=== PATIENT | female | born 1945 | race Caucasian/White ===

== ENCOUNTER → 2016-12-20 | Outpatient (CLI) | payer MEDICARE, OTHER ==
[2014-08-11 09:30] VITALS: BP 126/66
[~2016-12-20] MED LIST: ALBU8.5H8 IH; ASPI-630 PO; CALC1TAB PO; LOSA1TAB7 PO; MELO15TA6 PO; VITA400C36 PO
--- NOTE | 2016-12-21 09:26 | RAD ---
DATE: 12/20/2016 EXAM: MAMMO KARYNA SCREENING BILATERAL HISTORY: Screening mammogram COMPARISON: None. This study was interpreted with the benefit of Computerized Aided Detection (CAD). The breast parenchyma shows scattered fibroglandular densities. Breast parenchyma level B. FINDINGS: Digital 2-D and 3-D, tomosynthesis CC and MLO views of both breasts. In the lower inner quadrant of the left breast, junction of anterior middle depth, there is a circumscribed 5 mm mass. No suspicious calcifications or architectural distortion. IMPRESSION: 1. 5 mm mass in the lower inner quadrant of the left breast. BI-RADS CATEGORY: 0 INCOMPLETE: NEEDS ADDITIONAL IMAGING EVALUATION AND/OR PRIOR MAMMOGRAMS FOR COMPARISON. RECOMMENDED FOLLOW-UP: ADD ADDITIONAL IMAGING. Spot compression views of the left breast and possible same day ultrasound for further evaluation. PQRS compliance statement: Patient information was entered into a reminder system. Mammography is a sensitive method for finding small breast cancers, but it does not detect them all and is not a substitute for careful clinical examination. A negative mammogram does not negate a clinically suspicious finding and should not result in delay in biopsying a clinically suspicious abnormality. "Our facility is accredited by the [employer] Mammography [employer]."
== END | disposition home or self-care (01) ==
LOC: MAMMO 13:04
PROVIDERS: ATTEND Physician Assistant
DX: Z12.31 Encounter for screening mammogram for malignant neoplasm of breast (principal)
CPT/HCPCS: 77063; G0202; 77067

== ENCOUNTER → 2017-01-04 | Outpatient (CLI) | payer MEDICARE, OTHER ==
[2014-08-11 09:30] VITALS: BP 126/66
--- NOTE | 2017-01-06 11:22 | RAD ---
DATE: 01/04/2017 EXAM: BREAST LEFT, DIGITAL DIAGNOSTIC LT HISTORY: Small mass seen within the left breast on recent screening mammogram. COMPARISON: 12/20/2016 This study was interpreted with the benefit of Computerized Aided Detection (CAD ). FINDINGS: True lateral and spot compression MLO and CC digital mammograms of the left breast were obtained. Comparison study is dated 12/20/2016. A persistent small well-defined nodule is seen within the medial aspect of the left breast, unchanged. Further evaluation with ultrasound is recommended. A real-time ultrasound examination of the medial aspect of the left breast was performed. Multiple images were obtained. Comparison is made to the patient's mammogram performed earlier the same day. Within the left breast at the 7:00 position a well-defined oval-shaped complex structure is seen which measures 4 mm in greatest diameter. This corresponds to the patient's mammographic abnormality. Its ultrasound appearance is consistent with a probably benign finding. A repeat ultrasound of the left breast in 6 months is recommended to document its stability. IMPRESSION: BI-RADS Category 3 probably benign findings. A repeat ultrasound of the left breast in 6 months is recommended to document stability of the 4 mm nodule within the left breast at the 10:00 position as outlined above. BI-RADS CATEGORY: 3 PROBABLY BENIGN FINDING(S)-SHORT INTERVAL FOLLOW-UP SUGGESTED RECOMMENDED FOLLOW-UP: 6 month follow-up ultrasound left breast PQRS compliance statement: Patient information was entered into a reminder system with a target due date of July 07, 2017 for follow-up ultrasound of the left breast. Mammography is a sensitive method for finding small breast cancers, but it does not detect them all and is not a substitute for careful clinical examination. A negative mammogram does not negate a clinically suspicious finding and should not result in delay in biopsying a clinically suspicious abnormality. "Our facility is accredited by the [employer] Mammography Program." MTDD
== END | disposition home or self-care (01) ==
LOC: MAMMO 13:06
PROVIDERS: ATTEND Physician Assistant
DX: R92.8 Other abnormal and inconclusive findings on diagnostic imaging of breast (principal)
CPT/HCPCS: 76641; G0206; 77065

== ENCOUNTER → 2017-12-27 | Outpatient (CLI) | payer MEDICARE, OTHER ==
[2014-08-11 09:30] VITALS: BP 126/66
--- NOTE | 2017-12-27 14:53 | RAD ---
DATE: 2017 EXAM: MAMMO KARYNA SCREENING BILATERAL HISTORY: Routine screening COMPARISON: 12/20/2016 This study was interpreted with the benefit of Computerized Aided Detection (CAD). The breast parenchyma shows scattered fibroglandular densities. Breast parenchyma level B. FINDINGS: 2-D and 3-D tomosynthesis imaging was performed in CC and MLO projections. A small smooth nodule is again noted medially in the left breast on CC karyna image #[id number]. It is unchanged since 12/20/2016. No new or enlarging breast densities are seen. Benign type calcifications present. No suspicious microcalcifications have developed. IMPRESSION: Stable bilateral mammograms. Follow-up left breast ultrasound in 6 months and bilateral mammography at one year is suggested to confirm stability of the small left breast nodule. BI-RADS CATEGORY: 3 PROBABLY BENIGN FINDING(S)-SHORT INTERVAL FOLLOW-UP SUGGESTED RECOMMENDED FOLLOW-UP: 6M 6 MONTH FOLLOW-UP PQRS compliance statement: Patient information was entered into a reminder system with a target due date for the next mammogram. Mammography is a sensitive method for finding small breast cancers, but it does not detect them all and is not a substitute for careful clinical examination. A negative mammogram does not negate a clinically suspicious finding and should not result in delay in biopsying a clinically suspicious abnormality. "Our facility is accredited by the [employer] Mammography Program."
== END | disposition home or self-care (01) ==
LOC: MAMMO 11:07
PROVIDERS: ATTEND Physician Assistant
DX: Z12.31 Encounter for screening mammogram for malignant neoplasm of breast (principal); E78.5 Hyperlipidemia, unspecified; I10 Essential (primary) hypertension; J45.909 Unspecified asthma, uncomplicated; I25.2 Old myocardial infarction; Z86.73 Personal history of transient ischemic attack (TIA), and cerebral infarction without residual deficits
CPT/HCPCS: 77063; 77067

== ENCOUNTER → 2018-05-02 | Outpatient (CLI) | payer OTHER ==
[2014-08-11 09:30] VITALS: BP 126/66
--- NOTE | 2018-05-02 15:51 | RAD ---
2 view study of both knees Clinical indications: Bilateral knee pain. No known injury. 2 view left knee study: No acute fracture or dislocation or osteolytic process is seen. There is moderate joint space narrowing and spurring of the medial tibiofemoral joint compartment. There is mild joint space narrowing and mild spurring of the lateral tibiofemoral joint compartment. There is mild joint space narrowing and spurring of the patellofemoral joint compartment. IMPRESSION: Tricompartmental primary degenerative osteoarthritis of left knee most severely involving the medial tibial femoral joint compartment. 2 view right knee study: There is moderate joint space narrowing and moderate spurring of the medial tibiofemoral joint compartment. There is moderate spurring with mild joint space narrowing of the lateral tibial femoral joint compartment. There is moderate spurring and mild joint space narrowing of the patellofemoral joint compartment. No acute fracture or dislocation or osteolytic process is evident. A small right knee joint effusion is seen. IMPRESSION: Tricompartmental primary degenerative osteoarthritis of the right knee most severely involving the medial tibiofemoral joint compartment. Electronically signed by: Christiano Page MD (05/02/2018 3:47 PM) [place] [id number]
== END | disposition home or self-care (01) ==
LOC: PMG 11:57
PROVIDERS: ATTEND Physician Assistant
DX: M17.0 Bilateral primary osteoarthritis of knee (principal); M25.461 Effusion, right knee
CPT/HCPCS: 73560

== ENCOUNTER → 2020-01-30 | Outpatient (CLI) | payer MEDICARE ==
[2014-08-11 09:30] VITALS: BP 126/66
[~2020-01-30] MED LIST changes: +ALBU2.5V8 IH; -ALBU8.5H8 IH; +VITA-8 PO; -VITA400C36 PO
--- NOTE | 2020-01-30 12:11 | RAD ---
Right lower extremity venous doppler ultrasound History: Right lower extremity swelling Comparison: None Findings: Multiple grayscale, color, and duplex spectral analysis sonographic images were acquired of the right lower extremity veins to evaluate for the presence of DVT. There is normal phasicity. Normal compression, color-flow, and augmentation is demonstrated from the right common femoral to the popliteal veins. There is normal color flow of the proximal greater saphenous and profunda femoris veins. There is normal color flow of segments of the calf veins. There is edema of the soft tissues in the calf. Impression: 1. There is no evidence of deep venous thrombosis from the right common femoral to the popliteal veins. Electronically signed by: Demarco Hennessy MD (01/30/2020 12:08 PM) [id number]
== END | disposition home or self-care (01) ==
LOC: US 11:08
PROVIDERS: ATTEND Physician Assistant
DX: R22.41 Localized swelling, mass and lump, right lower limb (principal); M79.89 Other specified soft tissue disorders
CPT/HCPCS: 93971

== ENCOUNTER 2020-02-06 11:28 | Inpatient (IN) | payer MEDICARE ==
[~2020-02-06] VITALS: Ht 162.6 cm; Wt 80.7 kg
--- NOTE | 2020-02-06 16:07 | NUR ---
NSG NOTE; ADMISSION DIRECT ADMIT TO ROOM 111 AT 1345 FROM HOME VIA W/C C/O RLE CELLULITIS X 2 MONTHS AND HAS FAILED MULTIPLE ORAL ANTIBIOTICS SO WAS ADMITTED FOR IV ABX THERAPY
[2020-02-06 16:26] VITALS: BP 112/74
--- NOTE | 2020-02-06 17:13 | HP ---
ADMIT DATE: 02/06/2020 HISTORY OF PRESENT ILLNESS: The patient is a 74-year-old female patient who was admitted directly from the [facility] as her primary care physician called me stating that she has had chronic cellulitis for which she has been treated for multiple courses of different antibiotics for over 2 months now without really much improvement. All the antibiotics were given by mouth except perhaps her Rocephin intramuscularly. Her last course was clindamycin according to her and therefore, she was admitted for further evaluation and treatment. The patient denied any pain, chills, rigors or fever or difficulty walking. PAST MEDICAL HISTORY: Significant for hypertension, hyperlipidemia, and hepatitis C exposure. She also has sinusitis and osteoarthritis of both knee joints. PAST SURGICAL HISTORY: Significant for tonsillectomy and adenoidectomy. She has had colonoscopy multiple times and abscess removal in 07/2015. FAMILY HISTORY: Her mother at the age of 63 because of breast cancer. Father at age of 89 because of heart disease and CVA. Maternal aunt of stomach cancer. One brother of myocardial infarction. He is also known to have muscular dystrophy. SOCIAL HISTORY: She is . She has 1 daughter and 2 sons. She never smoked and drinks alcohol very little. Does not use any drugs. She is currently retired. She was [employer] for years. REVIEW OF SYSTEMS: The patient denies any blurring of vision, cataract, glaucoma or macular degeneration. Denied any earache, tinnitus or sensorineural deafness. Denied any nosebleeds, stuffy nose or postnasal drip. Denied any sore throat, sore tongue, toothache, hoarseness of voice or difficulty swallowing. Denied any hematemesis, melena or hematochezia. Denied any dysuria, frequency or hematuria. Denied chest pain, shortness of breath, orthopnea or paroxysmal nocturnal dyspnea. Denied any cough, phlegm or hemoptysis. ALLERGIES: SHE IS ALLERGIC TO BIAXIN AND SULFA DRUGS. MEDICATIONS: She is currently on albuterol inhaler 1-2 puffs every 6 hours as needed, vitamin C plus zinc tablet 1 tablet once a day. She is on aspirin 81 mg once a day, Caltrate 1 tablet twice a day. She is taking vitamin D 2000 international unit once a day, vitamin B12 1000 mcg once a day, folic acid 800 mcg once a day, hydroxyzine pamoate 25 mg orally twice a day. She is on Bactroban 2% ointment applied topically daily. She is on Crestor 20 mg once a day, Lasix 20 mg once a day, potassium chloride 10 mEq extended release 1 tablet once a day, Hyzaar 25/100 one tablet once a day and was taking clindamycin 300 mg every 6 hours. PHYSICAL EXAMINATION: GENERAL: When I examined her this afternoon, she was resting slightly propped up in bed, in no apparent respiratory distress. No pallor, jaundice, cyanosis or thyromegaly. No jugular venous distention. No lower limb edema. VITAL SIGNS: Her heart rate was 89, blood pressure was 112/74, temperature was 98.7, respiratory rate 20, and oxygen saturation was 97% on room air. HEAD, EYES, EARS, NOSE AND THROAT: Showed normocephalic, atraumatic. NECK: Supple. HEART: Showed normal first and second heart sounds. No gallop or murmur. CHEST: Clear to auscultation. No crepitation or rhonchi. ABDOMEN: Distended, soft, nontender. NEUROLOGIC: She was awake, alert, responding appropriately. All cranial nerves intact. EXTREMITIES: She moves extremities without difficulty. She ambulates without assistance or assistive devices. LABORATORY DATA: Her lab work this morning is still pending at the time of this dictation. ASSESSMENT: The patient was admitted with cellulitis and right lower extremity with an ulcer. She has also hypertension and osteoarthritis of both knee joints. She apparently has had a venous Doppler ultrasound done only 2 days ago and according to her was basically unremarkable. In fact, it showed there is no evidence of deep vein thrombosis from the right common femoral to the popliteal veins. PLAN: My plan is to start the patient on IV antibiotic in the form of vancomycin. I will also arrange for her to repeat her labs including CBC, CMP, sed rate and CRP. I would check also her x-ray of her right knee and right tibia and fibula and we might have to arrange for her to have a bone scan as the deformity and the size of the right leg suggestive of Paget's disease of bone, although this is only my clinical impression and obviously I am working to __. ADELA LAO MD DR: Carissa JOB#: [id number] / [id number]
[2020-02-06 17:23] LABS: HEMATOCRIT 43.9 % (36.0-47.0); HEMOGLOBIN 14.4 g/dL (12.0-15.5); RED BLOOD COUNT 5.02 x10^6/uL (3.50-5.40); RED CELL DISTRIBUTION WIDTH 14.2 % (11.5-14.5); WHITE BLOOD COUNT 8.2 x10^3/uL (4.0-11.0)
[2020-02-06 17:34] LABS: ALBUMIN/GLOBULIN RATIO 0.7 (1.0-1.7); C REACTIVE PROTEIN 4.1 mg/L (0-3.3); CALCIUM 8.8 mg/dL (8.5-10.1); CREATININE 1.1 mg/dL (0.6-1.0); GFR 48.8; POTASSIUM 3.3 mmol/L (3.5-5.1); TOTAL BILIRUBIN 0.8 mg/dL (0.2-1.0); TOTAL PROTEIN 7.1 g/dL (6.4-8.2)
[2020-02-06] MEDS: PIPERACILLIN/TAZOBACTAM 3.375 GM in IV NORMAL SALINE 50ML 50 ML IV SCH (17:54)
[2020-02-06] MEDS ORDERED: VANCOMYCIN 2 GM in IV NORMAL SALINE 500ML 500 ML IV ONE (18:00)
[2020-02-06 19:50] VITALS: BP 102/60
[2020-02-06] MEDS: VANCOMYCIN PER PHARMACY MC PRN (20:21)
--- NOTE | 2020-02-06 20:24 | NUR ---
Pharmacy Vancomycin Dosing Note S:Consulted to monitor and dose vancomycin started 02/06/20. O:JHONATHAN HAYES is a 74 year old F with Cellulitis, . Height: 5 feet, 4 inches Weight: 80.9 kg [place] Body Weight: 54.70 Adjusted Body Weight: 65.18 Dosing Weight: Actual Other Antibiotics: ZOSYN 3.375GM IV Q6H LABS: Last BUN: 23 Last Creatinine: 1.1 Creatinine Clearance: 47.57 Last WBC: 8.2 Vancomycin Dosing: Loading Dose: 2000 mg x1 Dosing Weight: Actual Target Trough: 10-20 A: Based on: Actual weight, renal function and indication P: 1. Begin Vancomycin 1250 mg IV q24h 2. Follow up Trough level on 02/08/20 at 1800 3. Pharmacy will continue to monitor, follow and adjust therapy as needed. ANNMARIE ART, 02/06/202023
--- NOTE | 2020-02-06 21:49 | NUR ---
Pt was sitting up at bedside during assessment. Pt denies any pain and states that she just feels tired. Pt was calm and cooperative during assessment. Pt was given a snack and water. Pt is now laying down in bed resting w/ call light in reach. Will continue to monitor.
[2020-02-06 23:17] VITALS: BP 106/71
[2020-02-07] MEDS: PIPERACILLIN/TAZOBACTAM 3.375 GM in IV NORMAL SALINE 50ML 50 ML IV SCH ×4 (01:20→18:01)
[2020-02-07 06:24] VITALS: BP 120/80
[2020-02-07] MEDS ORDERED: POTASSIUM CHLORIDE 20 MEQ TABLET.ER. PO ONE (07:30)
--- NOTE | 2020-02-07 08:23 | RAD ---
Indications: Pain and swelling. Three-view right knee study: No acute fracture or dislocation or lytic process is evident. Tricompartmental primary degenerative osteoarthritis of the right knee is evident. Two-view study of the right tibia and fibula: No acute fracture or dislocation or lytic process is seen. IMPRESSION: No acute fracture. Diffuse subcutaneous soft tissue edema. This may be seen with cellulitis. Electronically signed by: Christiano Page MD (02/07/2020 8:20 AM) [id number]
[2020-02-07] MEDS: LACTOBACILLUS RHAMNOSUS GG 1 CAPSULE. PO SCH ×2 (09:18→21:10)
--- NOTE | 2020-02-07 10:21 | RAD ---
ARTERIAL STUDY LOWER EXT BI Indication: Reason: PERSISTENT ULCER ON THE RIGHT LE / Spl. Instructions: / History: Pain. Comparison: None. Procedure: Real-time grayscale, color flow Doppler, and Doppler spectral waveform analysis of the arterial system of the lower extremity is performed. Findings: Right lower extremity: Monophasic waveform throughout the right lower extremity. Borderline elevated velocity within the right mid superficial femoral artery. No flow is identified within the right peroneal artery. Mild atheromatous plaque throughout the right lower extremity. Left lower extremity: Triphasic or biphasic waveform within the left common femoral, deep femoral, superficial femoral, popliteal, peroneal, anterior tibial and dorsalis pedis arteries. Monophasic waveform within the posterior tibial artery. No significant velocity elevation to suggest stenosis. Mild atheromatous plaque throughout the left lower extremity. IMPRESSION: 1. Mild bilateral atheromatous plaque. 2. No flow identified within the right peroneal artery, concerning for occlusion. CT angiogram can further evaluate as clinically warranted. 3. Monophasic waveform throughout the right lower extremity, may indicate proximal stenosis. 4. Monophasic waveform within the left posterior tibial artery, may indicate proximal stenosis. 5. Borderline elevated velocity within the right superficial femoral artery, may represent 30-49% stenosis. Electronically signed by: Dom Sarmiento DO (02/07/2020 10:18 AM) [id number]
[2020-02-07 10:31] VITALS: BP 108/74
[2020-02-07 14:24] VITALS: BP 133/77
--- NOTE | 2020-02-07 15:25 | NUR ---
Wound Care Wound Type/Assessment: patient seen per wound care consult. see wound assessment. patient has 3 stasis ulcers to the right lower leg, the wounds were cleaned, measured and redressed at this time. Treatment Recommendations/Plan: right anterior lower leg- Cleanse the wound then apply Medihoney alginate with an abd pad with kerlix and tape, change every 2-3 days. right lateral calf and right posterior calf- cleanse the wound then apply a silver contact layer with an abd pad with kerlix and tape, change every 2-3 days. Recommended Referrals/Tests: Recommend patient to f/u in the outpatient wound clinic. Discharge Recommendations for dressings: Continue with dressings and for patient to f/u in the wound clinic. notified SILVIA Barbosa about the POC and wound care will continue to f/u for changes.
[2020-02-07 16:35] LABS: CALCIUM 8.5 mg/dL (8.5-10.1); CREATININE 1.4 mg/dL (0.6-1.0); POTASSIUM 4.1 mmol/L (3.5-5.1)
[2020-02-07] MEDS: MULTIVITAMIN with MINERAL TABLET. PO SCH (18:00)
[2020-02-07] MEDS: ASCORBIC ACID 500 MG TABLET PO SCH (18:00)
[2020-02-07] MEDS: VANCOMYCIN 1.25 GM in IV NORMAL SALINE 250ML 250 ML IV SCH (19:19)
[2020-02-07 19:33] VITALS: BP 117/61
[2020-02-07 22:49] VITALS: BP 122/83
--- NOTE | 2020-02-07 22:52 | PN ---
DATE: 02/07/2020 SUBJECTIVE: The patient is resting, slightly propped up in bed, in no apparent distress. She denied any complaint, in particular any chest pain, shortness of breath, chills, rigors, or fever. Denied any pain in her leg; however, her right lower extremity is somewhat more erythematous, although it seems to be less swollen. OBJECTIVE: VITAL SIGNS: Her heart rate was 83, blood pressure was 133/77, temperature was 98, respiratory rate was 20, and oxygen saturation was 94%. HEAD, EYES, EARS, NOSE AND THROAT: Normocephalic, atraumatic. NECK: Supple. HEART: Showed normal first and second heart sounds. No gallop or murmur. CHEST: Clear to auscultation. No crepitation or rhonchi. ABDOMEN: Distended, soft, nontender. No guarding or rigidity. No organomegaly. All hernial orifice intact. Bowel sounds normal. NEUROLOGIC: She is awake, alert, responding appropriately. All cranial nerves intact. She moves extremities without difficulty. She ambulates without assistance or assistive devices. Her intake was 815, no output was recorded. LABORATORY DATA: As of yesterday showed a serum sodium 140, potassium 3.3, chloride 105, bicarbonate 30, anion gap of 5, BUN 23, creatinine 1.1, estimated GFR was 48 mL per minute. Her glucose was 99. Calcium was 8.8. Total bilirubin, AST, ALT were normal. Alkaline phosphatase slightly elevated. C-reactive protein was 4.1. Total protein was 7.1, albumin 3. ASSESSMENT: 1. Right lower extremity cellulitis for which she is now on IV Zosyn and vancomycin. Other medical problems include, A. Hypertension. B. Hyperlipidemia. C. Hepatitis C exposure. D. Osteoarthritis of both knee joints. PLAN: To continue with IV antibiotic. She has also hypokalemia for which we will replenish her potassium. I will hold her losartan and hydrochlorothiazide. Repeat her labs tomorrow. ADELA LAO MD DR: TANISHA/imlagro JOB#: [id number] / [id number]
[2020-02-08] MEDS: PIPERACILLIN/TAZOBACTAM 3.375 GM in IV NORMAL SALINE 50ML 50 ML IV SCH ×5 (00:23→23:56)
[2020-02-08 05:50] VITALS: BP 113/59
[2020-02-08 07:41] LABS: HEMATOCRIT 39.1 % (36.0-47.0); HEMOGLOBIN 12.7 g/dL (12.0-15.5); RED BLOOD COUNT 4.5 x10^6/uL (3.50-5.40); RED CELL DISTRIBUTION WIDTH 14.1 % (11.5-14.5); WHITE BLOOD COUNT 6.6 x10^3/uL (4.0-11.0)
[2020-02-08 07:42] LABS: ALBUMIN 2.4 g/dL (3.4-5.0); ALBUMIN/GLOBULIN RATIO 0.6 (1.0-1.7); CALCIUM 8.3 mg/dL (8.5-10.1); CREATININE 1.2 mg/dL (0.6-1.0); GFR 44.2; POTASSIUM 4.2 mmol/L (3.5-5.1); TOTAL BILIRUBIN 0.9 mg/dL (0.2-1.0); TOTAL PROTEIN 6.1 g/dL (6.4-8.2)
[2020-02-08] MEDS: ASPIRIN CHEWABLE 81 MG TABLET. PO SCH (09:16)
[2020-02-08] MEDS: LACTOBACILLUS RHAMNOSUS GG 1 CAPSULE. PO SCH ×2 (09:16→20:50)
[2020-02-08] MEDS: MULTIVITAMIN with MINERAL TABLET. PO SCH (09:16)
[2020-02-08] MEDS: ASCORBIC ACID 500 MG TABLET PO SCH (09:16)
[2020-02-08 11:29] VITALS: BP 113/74
[2020-02-08 15:42] VITALS: BP 120/74
[2020-02-08] MEDS: VANCOMYCIN 1.25 GM in IV NORMAL SALINE 250ML 250 ML IV SCH (18:30)
[2020-02-08 18:35] LABS: VANC TR 12.5 mcg/mL (10.0-20.0)
[2020-02-08 19:47] VITALS: BP 129/79
--- NOTE | 2020-02-08 21:09 | PN ---
DATE: 02/08/2020 SUBJECTIVE: The patient is a 74-year-old female patient who was admitted with cellulitis of the right lower extremity and ulcer for which she is now on IV antibiotic. She continued to have a swollen right lower extremity. The ulcer is covered with dressing done by the wound care team. She denied any pain. She is afebrile. PHYSICAL EXAMINATION: GENERAL: When I examined her, she looked somewhat pale, but no jaundice, cyanosis or thyromegaly. No jugular venous distention. No lower limb edema. VITAL SIGNS: Her heart rate was 73, blood pressure was 113/74, temperature 97.6, respiratory rate 20, and oxygen saturation was 96%. HEAD, EYES, EARS, NOSE AND THROAT: Showed normocephalic, atraumatic. NECK: Supple. HEART: Normal first and second heart sounds. No gallop or murmur. CHEST: Clear to auscultation. No crepitation or rhonchi. ABDOMEN: Distended, soft, nontender. NEUROLOGIC: She was awake, alert, responding appropriately. She moves all extremities without difficulty. She ambulates without assistance or assistive devices. EXTREMITIES: Her right lower extremity is definitely more swollen than left, and she has an ulcer on the medial aspect of the right leg that is covered with dressing. We did a venous Doppler ultrasound ____ days ago and it was negative as per her primary care physician. Her intake over the last 24 hours was 815, no output was recorded. LABORATORY DATA: Her lab work this morning showed a white cell count of 6600, hemoglobin 12.7, hematocrit 39, MCV 87, and platelet count 203,000. Her serum sodium 143, potassium 4.2, chloride 108, bicarbonate 28, anion gap of 7, BUN 18, creatinine was 1.2, estimated GFR was 44 mL per minute. Her glucose was 95, calcium was 8.3. Total bilirubin, AST, ALT, alkaline phosphatase were normal. Her total protein was 6.1, albumin was 2.4. ASSESSMENT: 1. Right lower extremity cellulitis for which she is on IV Zosyn and vancomycin. 2. Other medical problems include: A. Hypertension. B. Hyperlipidemia. C. Hepatitis C exposure. D. Osteoarthritis of both knee joints. PLAN: To continue IV antibiotic. Her hypokalemia has improved and now it is 4.3. My plan is to arrange for her to have a PICC line placed and she will eventually be discharged home probably on IV daptomycin to come to this hospital as an outpatient for IV antibiotic. ADLEA LAO MD DR: TANISHA/milagro JOB#: [id number] / [id number]
[2020-02-08 22:41] VITALS: BP 146/83
[2020-02-09 05:36] VITALS: BP 143/85
[2020-02-09] MEDS: PIPERACILLIN/TAZOBACTAM 3.375 GM in IV NORMAL SALINE 50ML 50 ML IV SCH ×2 (05:48→12:00)
[2020-02-09 05:50] VITALS: BP 130/73
[2020-02-09] MEDS: LACTOBACILLUS RHAMNOSUS GG 1 CAPSULE. PO SCH ×2 (08:11→21:28)
[2020-02-09] MEDS: ASCORBIC ACID 500 MG TABLET PO SCH (08:11)
[2020-02-09] MEDS: MULTIVITAMIN with MINERAL TABLET. PO SCH (08:11)
[2020-02-09] MEDS: ASPIRIN CHEWABLE 81 MG TABLET. PO SCH (08:11)
[2020-02-09] MEDS: VANCOMYCIN PER PHARMACY MC PRN (10:00)
--- NOTE | 2020-02-09 10:00 | NUR ---
Pharmacy Vancomycin Dosing Note S:Consulted to monitor and dose vancomycin started 02/06/20. O:JHONATHAN HAYES is a 74 year old F with Cellulitis, . Height: 5 feet, 4 inches Weight: 80.9 kg [place] Body Weight: 54.70 Adjusted Body Weight: 65.18 Dosing Weight: Actual Other Antibiotics: ZOSYN 3.375GM Q6HRS LABS: Last BUN: 18 Last Creatinine: 1.2 Creatinine Clearance: 47.57 Last WBC: 6.6 Last Procalcitonin: Tmax (past 24 hours): Microbiology: I/O: Drug Levels: Last Trough level: 12.5 on 02/08/20 at 1800 Last dose given 02/08/20 at 1830 Vancomycin Dosing: Loading Dose: 2000 mg x1 Dosing Weight: Actual Target Trough: 10-20 A: Based on: P: 1. Continue Vancomycin 1250 mg IV q24h 2. Follow up Trough level on 02/10/20 @ 1800 3. Pharmacy will continue to monitor, follow and adjust therapy as needed. WILVER MARSHALL RPH, 02/09/20 1000
--- NOTE | 2020-02-09 12:30 | NUR ---
Allergies and reactions y INR BUN Cr Platelets y Blood culture done blood culture results Order Verified y Consent signed y Previous PICC placement n Past Medical/Surgical history and current diagnosis reviewed Patient Medical /Surgical History Related to PICC line placement None Special considerations for PICC line placement None PICC placement indication Caustic medication class drug usage, residential antibiotic usage, Multiple/ Frequent blood draws Name of PICC Nurse Emily Naranjo [employer] [facility]
--- NOTE | 2020-02-09 14:11 | NUR ---
Procedure: Following complete explanation of the PICC procedure including the indications, risks, and potential complications, informed consent was obtained. The possibility for infection was discussed along with signs, symptoms, and prevention. All the questions were answered. IV Device Protocol was used. Written and verbal patient education was provided. Hand hygiene performed. Standardized central line checklist was utilized. The patient was placed in the supine position, the arm was prepped with chlorhexidine and patient draped with maximum sterile barrier. 2 mL 1% lidocaine was infiltrated into the skin to provide local anesthesia. A thorough assessment of basilic upper extremity completed. Using real-time ultrasound guidance and standardized micro puncture set, the basilic vein was punctured and a peel away sheath was placed using the modified Seldinger technique. A tip location device was used to ensure adequate catheter placement. The catheter was secured using a securement device and an antimicrobial patch was applied directly on the insertion site followed by a transparent dressing. All ports withdraw blood and flush without resistance. Patient tolerated the procedure without apparent complication(s). Single Lumen Power PICC placement successful and uncomplicated. Placement verified by EKG tip confirmation system. Complications:None Emily Naranjo [employer] [facility] 43 cm in 3 out
--- NOTE | 2020-02-09 15:24 | PN ---
DATE: 02/09/2020 SUBJECTIVE: The patient is sitting at the edge of the bed, no apparent distress. She did complain of pain in her knee joints and also had 2 loose bowel movements this morning, but denied any nausea or vomiting. Denied any abdominal pain. Denied any chills, rigors or fever. She has had her PICC line placed successfully this afternoon. PHYSICAL EXAMINATION: GENERAL: When I examined her, she looked well and was clearly in no apparent respiratory distress. No pallor, jaundice, cyanosis or thyromegaly. No jugular venous distention. No lower limb edema. VITAL SIGNS: Her heart rate was 57, blood pressure was 130/73, temperature was 98, respiratory rate was 18 and oxygen saturation was 100% on room air. HEAD, EYES, EARS, NOSE AND THROAT: Showed normocephalic, atraumatic. NECK: Supple. HEART: Normal first and second heart sounds. No gallop or murmur. CHEST: Clear to auscultation. No crepitation or rhonchi. ABDOMEN: Distended, soft, nontender. No guarding or rigidity. No organomegaly. All hernial orifices intact. Bowel sounds normal. NEUROLOGIC: She was awake, alert, responding appropriately. All cranial nerves intact. She moves extremities without difficulty. She ambulates without assistance or assistive devices. EXTREMITIES: The wound in the medial aspect of the right leg is covered with dressing. The right lower extremity swelling is slightly better. Her intake over the last 24 hours was 1490, output is incompletely recorded. ASSESSMENT: 1. Right lower extremity cellulitis. 2. Other medical problems include: A. Hypertension. B. Hyperlipidemia. C. Hepatitis C exposure. D. Osteoarthritis of both knee joints. PLAN: To discontinue Zosyn. Continue the vancomycin for today, we will switch her to daptomycin tomorrow and she can be discharged home. ADELA LAO MD DR: TANISHA/milagro JOB#: [id number] / [id number]
[2020-02-09 16:29] VITALS: BP 151/67
[2020-02-09] MEDS: VANCOMYCIN 1.25 GM in IV NORMAL SALINE 250ML 250 ML IV SCH (18:30)
[2020-02-09 19:49] VITALS: BP 113/76
[2020-02-09 23:00] VITALS: BP 132/82
[2020-02-10 06:04] VITALS: BP 133/84
[2020-02-10] MEDS: LACTOBACILLUS RHAMNOSUS GG 1 CAPSULE. PO SCH ×2 (08:42→20:05)
[2020-02-10] MEDS: ASCORBIC ACID 500 MG TABLET PO SCH (08:42)
[2020-02-10] MEDS: MULTIVITAMIN with MINERAL TABLET. PO SCH (08:42)
[2020-02-10] MEDS: DAPTOmycin 350 MG in IV NORMAL SALINE 50ML 50 ML IV SCH (08:42)
[2020-02-10] MEDS: ASPIRIN CHEWABLE 81 MG TABLET. PO SCH (08:42)
[2020-02-10] MEDS ORDERED: NORMAL SALINE IV SCH (09:15)
[2020-02-10] MEDS ORDERED: DAPTOMYCIN IV SCH (09:15)
--- NOTE | 2020-02-10 10:02 | NUR ---
NSG NOTE; CDIFF ISOLATION PT HAVING FREQUENT LIQUID STOOLS, OCC INCONTINENT. PT PLACED IN CONTACT PLUS/CDIFF ISOLATION AND STOOL SPECIMEN SENT TO LAB
[2020-02-10 10:51] LABS: CALCIUM 8.9 mg/dL (8.5-10.1); CREATININE 0.9 mg/dL (0.6-1.0); GFR 61.5; POTASSIUM 3.8 mmol/L (3.5-5.1)
[2020-02-10 11:24] VITALS: BP 128/81
[2020-02-10] MEDS: VANCOMYCIN 125 MG/2.5 ML ORAL SOLUTION. PO SCH ×3 (13:36→20:05)
[2020-02-10 16:15] VITALS: BP 130/86
[2020-02-10 19:28] VITALS: BP 104/67
--- NOTE | 2020-02-10 22:14 | PN ---
DATE: 02/10/2020 SUBJECTIVE: The patient is sitting at the edge of the bed comfortably in no apparent distress. She apparently has had about 6 episodes of loose bowel movement this morning and abdominal cramping; however, she denied any nausea or vomiting. Denied any chills, rigors or fever. PHYSICAL EXAMINATION: GENERAL: When I examined her this afternoon, she looked well and was clearly in no apparent respiratory distress. No pallor, jaundice, cyanosis or thyromegaly. No jugular venous distention. No limb edema. VITAL SIGNS: Her heart rate was 79, blood pressure was 130/86, temperature 97.9, respiratory rate was 18 and oxygen saturation was 97% on room air. HEAD, EYES, EARS, NOSE AND THROAT: Normocephalic, atraumatic. NECK: Supple. HEART: Showed normal first and second heart sounds. No gallop or murmur. CHEST: Clear to auscultation. No crepitation or rhonchi. ABDOMEN: Distended, soft, nontender. NEUROLOGIC: She was awake, alert, responding appropriately. All cranial nerves intact. She moves extremities without difficulty. She ambulates without assistance or assistive devices. Her intake over the last 24 hours was 1615. No output was recorded. LABORATORY DATA: Her lab work this morning showed a serum sodium 141, potassium 3.8, chloride 108, bicarbonate 29, anion gap of 4, BUN of 28, creatinine 0.9, estimated GFR was 61 mL per minute. Her glucose was 107, calcium was 8.9. Total protein is 6.1 and albumin 2.4. ASSESSMENT: 1. Right lower extremity cellulitis. 2. Hypertension. 3. Hyperlipidemia. 4. Hepatitis C exposure. 5. Osteoarthritis, both knee joints. 6. Recurrent episodes of loose bowel movement, likely due to Clostridium difficile colitis given the number of antibiotics she received over the last 2 months including clindamycin. PLAN: My plan is to continue with IV daptomycin. I did start her on probiotic and oral vancomycin. We sent stool for C. diff toxins. We will repeat all her labs tomorrow and if her diarrhea is less or subsided, she can be discharged. ADELA LAO MD DR: TANISHA/milagro JOB#: [id number] / [id number]
[2020-02-10 22:58] VITALS: BP 120/75
[2020-02-11 05:35] VITALS: BP 152/84
[2020-02-11 06:07] LABS: HEMATOCRIT 39.9 % (36.0-47.0); HEMOGLOBIN 13.1 g/dL (12.0-15.5); RED BLOOD COUNT 4.62 x10^6/uL (3.50-5.40); WHITE BLOOD COUNT 8.3 x10^3/uL (4.0-11.0)
[2020-02-11 06:29] LABS: ALBUMIN/GLOBULIN RATIO 0.7 (1.0-1.7); CALCIUM 9.2 mg/dL (8.5-10.1); GFR 54.5; POTASSIUM 4.2 mmol/L (3.5-5.1); TOTAL BILIRUBIN 0.9 mg/dL (0.2-1.0); TOTAL PROTEIN 7.1 g/dL (6.4-8.2)
[2020-02-11] MEDS: ASCORBIC ACID 500 MG TABLET PO SCH (09:00)
[2020-02-11] MEDS: LACTOBACILLUS RHAMNOSUS GG 1 CAPSULE. PO SCH (09:00)
[2020-02-11] MEDS: MULTIVITAMIN with MINERAL TABLET. PO SCH (09:00)
[2020-02-11] MEDS: DAPTOmycin 350 MG in IV NORMAL SALINE 50ML 50 ML IV SCH (09:00)
[2020-02-11] MEDS: ASPIRIN CHEWABLE 81 MG TABLET. PO SCH (09:00)
[2020-02-11 11:30] VITALS: BP 114/76
[2020-02-11] MEDS ORDERED: ASCO500T3 PO (13:12)
[2020-02-11] MEDS ORDERED: LACT1CAP6 PO (13:12)
[2020-02-11] MEDS ORDERED: DAPT500V7 IV (13:12)
[2020-02-11] MEDS ORDERED: MULT-245 PO (13:12)
--- NOTE | 2020-02-11 13:50 | DS ---
DATE OF DISCHARGE: HOSPITAL COURSE: The patient is a 74-year-old female patient who was admitted with cellulitis of the right lower extremity that has not responded to outpatient oral antibiotic. She was started on IV vancomycin and Zosyn. She has an ulcer on the medial aspect of the right leg, treated by Wound Care team. We did switch her to daptomycin. Unfortunately, she developed multiple episodes of diarrhea; however, her C. diff toxins were negative, has had no further episodes of diarrhea and therefore, a decision was made to discharge her home to complete her antibiotic treatment as an outpatient. PHYSICAL EXAMINATION: GENERAL: When I examined her this afternoon, she was sitting at the edge of the bed comfortably in no apparent respiratory distress. No pallor, jaundice, cyanosis or thyromegaly. No jugular venous distention. No lower limb edema. VITAL SIGNS: Her heart rate was 73, blood pressure 114/76, temperature 98.6, respiratory rate 20, and oxygen saturation was 97%. The rest of clinical exam is stable. The ulcer on the medial aspect of the right leg is covered with dressing. Her intake over the last 24 hours was 1400, no output was recorded as of this morning. LABORATORY DATA: Her lab work showed a white cell count of 8300, hemoglobin 13, hematocrit 39, MCV 86 and platelet count 242,000. Her chemistry this morning showed a serum sodium 141, potassium 4.2, chloride 106, bicarbonate 29, anion gap of 6, BUN 28, creatinine 1, estimated GFR was 54 mL per minute. Her glucose was 93, calcium was 9.2. Total bilirubin, AST, ALT, alkaline phosphatase were normal. Total protein 7.1, albumin 3. Her stool for C. diff by PCR was negative. DISCHARGE MEDICATIONS: She was discharged home to continue on ascorbic acid 500 mg once a day, daptomycin 500 mg IV daily for 10 days, lactobacillus acidophilus 1 capsule 3 times a day, multivitamin 1 tablet once a day. Should continue also on aspirin 81 mg once a day, losartan/hydrochlorothiazide 1 tablet daily. FINAL DISCHARGE DIAGNOSES: 1. Right lower extremity cellulitis. 2. Hypertension. 3. Primary osteoarthritis of both knee joints. 4. Hyperlipidemia. The patient will receive her daptomycin on a daily basis as an outpatient for a total of 10 days. AHMED M. SHILO, MD DR: TANISHA/milagro JOB#: [id number] / [id number]
--- NOTE | 2020-02-11 17:36 | NUR ---
NSG NOTE; DISCHARGE CDIFF NEGATIVE PICC RUE FLUSHED WITH NS 10 ML AND CAPPED AND LEFT IN PLACE PT WILL BE RETURNING DAILY FOR OUTPT IV ANTIBIOTIC THERAPY VERBAL AND WRITTEN DISCHARGE INSTRUCTIONS GIVEN TO PT WITH VERBAL UNDERSTANDING DISCHARGE TO HOME AT 1720 VIA AMB ACCOMP BY FAMILY MEMBER WHO PICKED HER UP
== END 2020-02-11 17:20 | disposition home or self-care (01) | DRG 602 ==
LOC: 1 SOUTH 13:42
PROVIDERS: ADMIT Internal Medicine; ATTEND Internal Medicine
DX: L03.115 Cellulitis of right lower limb (principal); N17.0 Acute kidney failure with tubular necrosis; E43 Unspecified severe protein-calorie malnutrition; L97.919 Non-pressure chronic ulcer of unspecified part of right lower leg with unspecified severity; R19.7 Diarrhea, unspecified; E87.6 Hypokalemia; E78.5 Hyperlipidemia, unspecified; M17.0 Bilateral primary osteoarthritis of knee; I10 Essential (primary) hypertension; Z20.5 Contact with and (suspected) exposure to viral hepatitis; Z80.0 Family history of malignant neoplasm of digestive organs; Z80.3 Family history of malignant neoplasm of breast; Z82.3 Family history of stroke; Z82.49 Family history of ischemic heart disease and other diseases of the circulatory system; Z88.2 Allergy status to sulfonamides; Z88.8 Allergy status to other drugs, medicaments and biological substances; Z68.30 Body mass index [BMI] 30.0-30.9, adult
CPT/HCPCS: 36415; 36569; 73562; 73590; 80048; 80053; 80202; 82550; 85027; 86140; 87493; 93923; J0878; J2543; J3370; J7040; J7050

== ENCOUNTER → 2021-10-12 | Outpatient (CLI) | payer MEDICARE ==
[2020-03-27 10:36] VITALS: BP 129/78
[~2021-10-12] MED LIST changes: +ASCO500T3 PO; +DAPT500V7 IV; +LACT1CAP6 PO; +MULT-245 PO
--- NOTE | 2021-10-12 13:38 | RAD ---
EXAM: BILATERAL DIGITAL SCREENING MAMMOGRAPHY. HISTORY: Routine mammographic screening. TECHNIQUE: Bilateral full field digital images were obtained in CC and MLO projections. Computer-aide d detection was applied. COMPARISON: 12/27/2017. COMPOSITION: B. There are scattered areas of fibroglandular density. FINDINGS: There are new nodules inferomedially on the left. See annotations. Elsewhere, scattered and vascular calcifications are benign. There is no suspicious finding on the ri ght. BI-RADS CATEGORY 0: Incomplete--Needs Additional Imaging Evaluation. RECOMMENDATION: 1. Sonography of the left inferomedial breasts to assess new nodules. Electronically signed by: Adam Duenas MD (10/12/2021 1:35 PM) [id number]
== END ==
LOC: MAMMO 12:02
PROVIDERS: ATTEND Physician Assistant
DX: Z12.31 Encounter for screening mammogram for malignant neoplasm of breast (principal)
CPT/HCPCS: 77067

== ENCOUNTER → 2021-10-19 | Outpatient (CLI) | payer MEDICARE ==
[2020-03-27 10:36] VITALS: BP 129/78
--- NOTE | 2021-10-19 13:28 | RAD ---
US BREAST LT History:Reason: CALLBACK / Spl. Instructions: / History: Comparison: Mammogram October 12, 2021 Technique: Sonographic examination of the left breast was performed and multiple static images were obtained. Findings: Well-circumscribed cyst within the left breast 11:00 position 3.5 cm from the nipple measures 0.5 x 0 .4 cm. Corresponds with mammographic finding. No pathologic lymphadenopathy within the left axilla. Impression: 1. Well-circumscribed cyst within the left breast corresponding with mammographic finding BI-RADS Category 2: Benign. Recommend return to annual screening mammogram. Electronically signed by: Dom Sarmiento DO (10/19/2021 1:25 PM) [id number]
== END ==
LOC: US 12:57
PROVIDERS: ATTEND Physician Assistant
DX: N60.02 Solitary cyst of left breast (principal); R92.2 Inconclusive mammogram
CPT/HCPCS: 76641

== ENCOUNTER → 2021-10-21 | Outpatient (CLI) | payer MEDICARE ==
[2020-03-27 10:36] VITALS: BP 129/78
--- NOTE | 2021-10-21 14:22 | RAD ---
XR KNEE 1-2 VIEWS, XR KNEE_AP BILAT STANDING History: Reason: CHRONIC LT KNEE PAIN / Spl. Instructions: / History: Technique: 3 views bilateral knees with AP standing view. Comparison: None. Findings: Right knee: Severe right knee degenerative changes most prominent within the medial compartment. Genu varus alignment. No dislocation. No acute fracture. Small knee joint effusion. Small calcified intra -articular loose body suprapatellar measures 0.5 cm. Left knee: Severe left knee degenerative changes most prominent within the medial compartment. Genu v arus alignment. Small knee joint effusion. No dislocation. No acute fracture. Calcified intra-articul ar loose body within the suprapatellar space measures 1.1 cm. Impression: 1. Severe bilateral knee DJD with calcified intra-articular loose bodies. Electronically signed by: Dom Sarmiento DO (10/21/2021 2:20 PM) [id number]
== END ==
LOC: RAD 13:17
PROVIDERS: ATTEND Orthopaedic Surgery Sports Medicine
DX: M17.0 Bilateral primary osteoarthritis of knee (principal); M23.42 Loose body in knee, left knee; M23.41 Loose body in knee, right knee; M25.462 Effusion, left knee; M25.461 Effusion, right knee
CPT/HCPCS: 73565; 73560-50